=== PATIENT | male | born 1995 | race Caucasian/White ===

== ENCOUNTER → 2017-05-13 | Emergency (ER) | payer OTHER ==
[~2017-05-13] VITALS: Ht 165.1 cm; Wt 102.5 kg
== END | disposition home or self-care (01) ==
LOC: ER 17:54
DX: J11.1 Influenza due to unidentified influenza virus with other respiratory manifestations (principal); B34.9 Viral infection, unspecified

== ENCOUNTER 2021-01-13 10:04 | Day surgery (SDC) | payer OTHER ==
[~2021-01-13 10:04] MED LIST: PEPCID20 MG PO
== END 2021-01-13 10:10 | disposition home or self-care (01) ==
LOC: AMB-ENDOS 10:04
PROVIDERS: ATTEND Surgery
DX: D13.1 Benign neoplasm of stomach (principal); K44.9 Diaphragmatic hernia without obstruction or gangrene